=== PATIENT | female | born 1950 | race Two or more races ===

== ENCOUNTER 2020-07-13 09:10 | Outpatient (CLI) | payer OTHER | END 2020-07-13 09:16 | disposition home or self-care (01) | LOC: SONOGRAMA 09:10 | PROVIDERS: ATTEND Pathology Anatomic Pathology & Clinical Pathology | DX: E04.2 Nontoxic multinodular goiter (principal) ==

== ENCOUNTER 2023-05-19 11:38 | Outpatient (CLI) | payer OTHER | END 2023-05-19 11:40 | disposition home or self-care (01) | LOC: SONOGRAMA 11:38 | PROVIDERS: ATTEND Pathology Anatomic Pathology & Clinical Pathology | DX: D34 Benign neoplasm of thyroid gland (principal); E07.9 Disorder of thyroid, unspecified; E04.1 Nontoxic single thyroid nodule; E06.5 Other chronic thyroiditis ==